=== PATIENT | female | born 1995 | race Caucasian/White ===

== ENCOUNTER 2017-01-16 13:32 | Emergency (ER) | payer OTHER ==
[2017-01-16 14:08] LABS: BILIRUBIN NEGATIVE (NEGATIVE); BLOOD 2+ Ery/uL (NEGATIVE); CLARITY CLEAR (CLEAR); COLOR YELLOW (YELLOW); GLUCOSE (U) NORMAL (NORMAL); KETONE (U) NEGATIVE (NEGATIVE); LEUKOCYTES TRACE Leu/uL (NEGATIVE); NITRITE NEGATIVE (NEGATIVE); PROTEIN NEGATIVE (NEGATIVE); UROBILINOGEN 0.2 mg/dL (0.2-1.0)
[2017-01-16 14:15] LABS: BACTERIA 1+
[2017-01-16 16:54] LABS: BASOPHIL 0.2 % (0-2); EOSINOPHIL 2.3 % (0-5); HCT 40.9 % (37.0-47.0); HGB 14.5 g/dl (12.5-16.0); LYMPHOCYTE 34.3 % (15-48); MCH 28.7 pg (25.0-31.0); MCHC 35.5 g/dL (32.0-36.0); MCV 80.8 fL (78.0-100.0); MONOCYTE 4.4 % (0-12); MPV 10.1 fL (6.0-9.5); NEUTROPHIL 58.8 % (41-80); PLT 303 K/uL (150-400); RBC 5.06 M/uL (4.20-5.40); RDW 13.1 % (11.5-14.0); WBC 8.3 K/uL (4.0-10.5)
[2017-01-16 17:11] LABS: CREATININE 0.6 mg/dL (0.5-1.0); POTASSIUM 4.1 mmol/L (3.5-5.1)
== END 2017-01-16 18:17 | disposition home or self-care (01) ==
LOC: FER 13:32
PROVIDERS: Internal Medicine; Nurse Practitioner Family
DX: N20.0 Calculus of kidney (principal); N39.0 Urinary tract infection, site not specified; F17.210 Nicotine dependence, cigarettes, uncomplicated; Z87.442 Personal history of urinary calculi; Z87.440 Personal history of urinary (tract) infections
CPT/HCPCS: 36415; 80048; 81001; 85025; 87076; 87088; 87186; J1885